=== PATIENT | male | born 1965 | race African-American/Black ===

== ENCOUNTER 2017-02-21 12:41 | Emergency (ER) | payer OTHER ==
[~2017-02-21] VITALS: Ht 175.3 cm; Wt 116.5 kg
[2017-02-21 13:34] LABS: EOSINOPHIL (%) 0 % (0-5); HEMATOCRIT 37.5 % (38.0-50.0); IMMATURE GRANULOCYTE (%) 0.3 % (0.0-0.7); INSTRUMENT ABS NEUTROPHIL CT 6.1 K/uL; LYMPHOCYTE COUNT 1.3 K/uL (1.0-2.8); MCH 27.4 PG (29.0-34.0); MCHC 31.5 G/DL (30.0-36.0); MCV 87.2 FL (86-99); MEAN PLAT.VOLUME 8.9 uM^3 (9.0-12.4); MONOCYTE (%) 18.4 % (3-12); MONOCYTE COUNT 1.7 K/uL (0-0.8); NEUTROPHIL (%) 67.2 % (45-76); NEUTROPHIL COUNT 6.1 K/uL (1.8-6.4); PLATELET COUNT 279 K/uL (156-360); RBC DIS.WIDTH-SD 48.2 % (39-53); WHITE BLOOD COUNT 9.1 K/uL (4.1-10.2)
[2017-02-21 13:39] LABS: INTER. NORMALIZED RATIO 1.3; PROTHROMBIN TIME 13.9 SEC (10.2-12.9)
[2017-02-21 13:44] LABS: CHLORIDE 105 mEq/L (99-109); POTASSIUM 3.8 mEq/L (3.7-5.4)
[2017-02-21 13:45] LABS: MAGNESIUM 1.9 mg/dL (1.3-2.7); SODIUM 138 mEq/L (136-147)
[2017-02-21 13:46] LABS: GLUCOSE 103 mg/dL (70-99)
[2017-02-21 13:48] LABS: ANION GAP 14 MEQ/L (2-14)
[2017-02-21 13:51] LABS: GFR ESTIMATE (CALCULATED) > 59 mL/min/; UREA NITROGEN (BUN) 16 mg/dL (9-23)
[2017-02-21 13:55] LABS: TROP-I INTERPRETATION NEGATIVE; TROPONIN-I < 0.01 ng/mL (0.0-0.30)
[2017-02-21] MEDS ORDERED: ASPIR 8181 M1 PO (15:08)
[2017-02-21 18:06] VITALS: BP 112/72
== END 2017-02-21 18:11 | disposition short-term general hospital (02) ==
LOC: EME 12:41
PROVIDERS: Emergency Medicine
DX: J18.9 Pneumonia, unspecified organism (principal); I25.2 Old myocardial infarction; Z87.891 Personal history of nicotine dependence; Z82.49 Family history of ischemic heart disease and other diseases of the circulatory system
CPT/HCPCS: 71020; 71275; 80048; 83605; 83735; 84484; 85025; 85379; 85610; 85730; 87040; 93005; 99281; 99285; J0692; J7030; J7050; J7644